=== PATIENT | female | born 1965 | race Caucasian/White ===

== ENCOUNTER 2017-02-01 19:08 | Emergency (ER) | payer MEDICAID, MEDICARE ==
[~2017-02-01] VITALS: Ht 165.1 cm; Wt 68.0 kg
[2017-02-01 19:11] VITALS: BP 127/80
== END 2017-02-02 00:40 | disposition left against medical advice (07) ==
LOC: ER 19:22
DX: M25.561 Pain in right knee (principal); Z53.21 Procedure and treatment not carried out due to patient leaving prior to being seen by health care provider